=== PATIENT | female | born 1975 | race Caucasian/White ===

== ENCOUNTER → 2020-06-22 | Outpatient (CLI) | payer OTHER ==
[2020-06-22 11:34] LABS: HEMOGLOBIN 15.5 gm/dl (12.3-15.3); RED BLOOD COUNT 5.04 M/UL (4.00-5.10)
[2020-06-22 13:08] LABS: BUN/CREATININE RATIO 15 (0-10)
== END ==
LOC: LAB 10:56
PROVIDERS: Internal Medicine
DX: N18.1 Chronic kidney disease, stage 1 (principal)
CPT/HCPCS: 80069; 82570; 83970; 84156; 85027

== ENCOUNTER → 2021-12-01 | Outpatient (CLI) | payer OTHER | LOC: KOH-I 13:35 | DX: R10.31 Right lower quadrant pain (principal); N83.9 Noninflammatory disorder of ovary, fallopian tube and broad ligament, unspecified | CPT/HCPCS: 74176 ==